=== PATIENT | male | born 1995 | race Caucasian/White ===

== ENCOUNTER 2022-10-04 12:26 | Emergency (ER) | payer OTHER ==
[~2022-10-04] VITALS: Ht 182.9 cm; Wt 101.0 kg
[2022-10-04 15:18] LABS: GC DNA AMPLIFICATION NEGATIVE (NEGATIVE)
[2022-10-04] MEDS ORDERED: ACETAMINOPHEN 500 MG TAB PO ONE (16:30)
[2022-10-04] MEDS ORDERED: KETOROLAC 30 MG/ML 1ML VIAL IM ONE (16:30)
[2022-10-04 17:16] VITALS: BP 142/72
== END 2022-10-04 17:20 | disposition home or self-care (01) ==
LOC: M ED 12:26
DX: G89.18 Other acute postprocedural pain (principal); N50.811 Right testicular pain; Z88.2 Allergy status to sulfonamides

== ENCOUNTER 2022-10-17 11:19 | Emergency (ER) | payer OTHER ==
[~2022-10-17] VITALS: Ht 185.4 cm; Wt 101.7 kg
[2022-10-17] MEDS ORDERED: ACET500T15 PO (11:52)
[2022-10-17] MEDS ORDERED: IBUP-1114 PO (11:52)
[2022-10-17 15:39] LABS: GC DNA AMPLIFICATION NEGATIVE (NEGATIVE)
[2022-10-17] MEDS ORDERED: CIPR-249 PO (15:44)
[2022-10-17] MEDS ORDERED: IBUP-1022 PO (15:44)
[2022-10-17] MEDS ORDERED: CIPROFLOXACIN 500MG TABLET PO ONE (15:45)
[2022-10-17 15:49] VITALS: BP 129/95
== END 2022-10-17 16:13 | disposition home or self-care (01) ==
LOC: M ED 11:19
DX: N50.811 Right testicular pain (principal); N50.3 Cyst of epididymis; Z88.2 Allergy status to sulfonamides

== ENCOUNTER → 2023-07-27 | Outpatient (CLI) | payer OTHER ==
[~2023-07-27] MED LIST: ACET500T15 PO; CIPR-249 PO; GABA-282 PO; IBUP-1022 PO; IBUP-1114 PO; PROZ40CA PO
== END ==
LOC: M RAD 06:33
PROVIDERS: ATTEND Pain Medicine Interventional Pain Medicine
DX: S43.431A Superior glenoid labrum lesion of right shoulder, initial encounter (principal); S43.432A Superior glenoid labrum lesion of left shoulder, initial encounter; Y92.9 Unspecified place or not applicable; Y93.9 Activity, unspecified

== ENCOUNTER → 2023-08-02 | Outpatient (CLI) | payer OTHER ==
[2023-08-02 14:08] LABS: PLATELET COUNT, AUTOMATED 254 10^3/uL (150-450)
[2023-08-02 14:19] LABS: PROTHROMBIN TIME 12.9 SECONDS (12.5-14.5)
[2023-08-02 14:28] LABS: COLLAGEN EPINEPHRINE 177 SECONDS (74-162)
[2023-08-02 15:15] LABS: COLLAGEN ADP 117 SECONDS (56-103)
== END ==
LOC: M LAB 13:20
PROVIDERS: ATTEND Physician Assistant Surgical
DX: Z01.818 Encounter for other preprocedural examination (principal)

== ENCOUNTER → 2023-08-08 | Outpatient (CLI) | payer OTHER ==
[2023-08-08 11:58] LABS: COLLAGEN EPINEPHRINE 220 SECONDS (74-162)
[2023-08-08 12:23] LABS: COLLAGEN ADP 150 SECONDS (56-103)
== END ==
LOC: M LAB 11:17
DX: Z01.812 Encounter for preprocedural laboratory examination (principal)

== ENCOUNTER → 2023-12-05 | Outpatient (CLI) | payer OTHER ==
[~2023-12-05] MED LIST changes: +DULO1CAP6 PO; +MECL-209 PO; +ONDA4TAB6 PO
[2023-12-07 04:07] LABS: F8 ACTIVITY FOR F8 PANEL 62 % (56-140); F8 ACTIVITY vWB FOR F8 PANEL 49 % (50-200); F8 ANTIGEN FOR F8 PANEL 61 % (50-200)
== END ==
LOC: M LAB 07:54
PROVIDERS: ATTEND Internal Medicine Hematology
DX: D69.1 Qualitative platelet defects (principal)

== ENCOUNTER 2023-12-08 13:33 | Emergency (ER) | payer OTHER ==
[~2023-12-08] VITALS: Ht 185.4 cm; Wt 109.6 kg
[~2023-12-08 13:33] MED LIST changes: -DULO1CAP6 PO; -MECL-209 PO; -ONDA4TAB6 PO
[2023-12-08] MEDS ORDERED: DULO1CAP6 PO (13:43)
[2023-12-08 14:38] LABS: BASO % 0.3 % (0.0-1.0); EOS # 0.4 10^3/uL (0.0-0.5); EOS % 4.7 % (0.0-3.0); HEMATOCRIT 47.2 % (42.0-52.0); HEMOGLOBIN 15.9 g/dl (13.5-17.5); LYMPH # 2.5 10^3/uL (1.5-5.0); MEAN CORPUSCULAR HEMOGLOBIN 29.9 pg (27.0-33.0); MEAN CORPUSCULAR HGB CONC 33.7 g/dl (32.0-36.5); MEAN CORPUSCULAR VOLUME 88.9 fl (80.0-96.0); MONO # 0.6 10^3/uL (0.0-0.8); MONO % 7.5 % (2.0-8.0); PLATELET COUNT, AUTOMATED 313 10^3/uL (150-450); RED BLOOD COUNT 5.31 10^6/uL (4.30-6.10); WHITE BLOOD COUNT 7.5 10^3/uL (4.0-10.0)
[2023-12-08 15:03] LABS: C REACTIVE PROTEIN QUANTITATIV < 0.40 MG/DL (<1.0); LIPASE 29 U/L (12-53)
[2023-12-08 15:05] LABS: ALBUMIN 4.1 G/DL (3.2-5.2); ALKALINE PHOSPHATASE 45 U/L (46-116); ALT/SGPT 93 U/L (7.0-40); AST/SGOT 33 U/L (<34); BILIRUBIN,DIRECT 0.3 MG/DL (<0.4); BILIRUBIN,TOTAL 1.1 MG/DL (0.3-1.2); BLOOD UREA NITROGEN 9 MG/DL (9-23); CALCIUM LEVEL 9.7 MG/DL (8.5-10.1); CARBON DIOXIDE LEVEL 30 MMOL/L (20-31); CHLORIDE LEVEL 105 MMOL/L (98-107); CREATININE FOR GFR 1.05 MG/DL (0.70-1.30); GLOMERULAR FILTRATION RATE > 60.0 (>60); GLUCOSE, FASTING 82 MG/DL (60-100); POTASSIUM SERUM 3.6 MMOL/L (3.5-5.1); SODIUM LEVEL 136 MMOL/L (136-145); TOTAL PROTEIN 7.3 G/DL (5.7-8.2)
[2023-12-08 15:14] LABS: ERYTHROCYTE SEDIMENTATION RATE 5 mm/hr (0-15)
[2023-12-08] MEDS: ONDANSETRON 4MG 2ML VIAL IV ONE (17:21)
[2023-12-08] MEDS: NS 1,000 ML IV ONE (17:21)
[2023-12-08] MEDS: KETOROLAC 30 MG/ML 1ML VIAL IV ONE (17:22)
[2023-12-08] MEDS: MECLIZINE 25 MG TABLET PO ONE (17:22)
[2023-12-08 18:02] LABS: CK-MB VALUE MASS < 1.0 NG/ML (<3.6)
[2023-12-08 18:03] LABS: MAGNESIUM LEVEL 1.9 MG/DL (1.8-2.4)
[2023-12-08 18:06] LABS: THYROID STIMULATING HORMONE 1.399 uIU/ML (0.55-4.78)
[2023-12-08 18:07] LABS: FREE T4 1.36 NG/DL (0.89-1.76)
[2023-12-08 18:09] LABS: CPK CREATINE PHOSPHOKINASE 111 U/L (46-171)
[2023-12-08 18:59] VITALS: BP 137/88; TEMP 97.4; O2SAT 99
[2023-12-08] MEDS ORDERED: MECL-209 PO (18:59)
[2023-12-08] MEDS ORDERED: ONDA4TAB6 PO (18:59)
== END 2023-12-08 19:15 | disposition home or self-care (01) ==
LOC: M ED 13:33
DX: G43.909 Migraine, unspecified, not intractable, without status migrainosus (principal); F41.9 Anxiety disorder, unspecified; F32.A Depression, unspecified; F17.290 Nicotine dependence, other tobacco product, uncomplicated; Z88.2 Allergy status to sulfonamides; Z79.899 Other long term (current) drug therapy
CPT/HCPCS: 70450; 80048; 80076; 82550; 82553; 83690; 83735; 84439; 84443; 84484; 85025; 85379; 85652; 86140; 87486; 87581; 87633; 87798; 93005; 96361; 96374; 96375; 99284; J1885; J2405

== ENCOUNTER 2024-05-09 08:58 | Outpatient (CLI) | payer OTHER ==
[~2024-05-09] VITALS: Ht 185.4 cm; Wt 113.6 kg
[~2024-05-09 08:58] MED LIST changes: +DULO1CAP6 PO; +MECL-209 PO; +ONDA-282 PO
[2024-05-09 09:20] VITALS: BP 128/82
[2024-05-09] MEDS ORDERED: NS 250 ML IV ONE (09:30)
[2024-05-09] MEDS: ACETAMINOPHEN TAB 650MG DOSE (2X325MG) PO ONE (11:10)
[2024-05-09] MEDS: diphenhydrAMINE 25MG CAP PO ONE (11:10)
[2024-05-09 11:45] VITALS: BP 139/67; O2SAT 99
[2024-05-09 12:45] VITALS: BP 121/62; O2SAT 100
== END 2024-05-09 13:00 ==
LOC: M INFU 08:58
PROVIDERS: ATTEND Internal Medicine Hematology
DX: D69.1 Qualitative platelet defects (principal); Z88.2 Allergy status to sulfonamides
CPT/HCPCS: 36430; 36592; 86850; 86900; 86901; P9034

== ENCOUNTER 2024-05-10 07:59 | Day surgery (SDC) | payer OTHER ==
[~2024-05-10] VITALS: Ht 185.4 cm; Wt 112.2 kg
[~2024-05-10 07:59] MED LIST changes: +LIDOCAINE 2% 100MG/5ML SDV (FOR ANES.) As Ordered ONE; +ONDANSETRON 4MG 2ML VIAL As Ordered ONE; +ROCURONIUM BROMIDE 50MG/5ML VIAL As Ordered ONE; +propofoL 200 MG/20 ML VIAL As Ordered ONE
[2024-05-10] MEDS ORDERED: LR 1,000 ML IV SCH ×2 (08:20→11:55)
[2024-05-10] MEDS ORDERED: MIDAZOLAM INJ 2MG/2ML VIAL As Ordered ONE (09:05)
[2024-05-10] MEDS ORDERED: ACETAMINOPHEN 1000MG 100ML IV BAG As Ordered ONE (09:05)
[2024-05-10] MEDS ORDERED: HYDROmorphone HCL 2MG/ML 1ML VIAL As Ordered ONE (09:05)
[2024-05-10] MEDS: TRANEXAMIC ACID 100 MG/ML 10ML VIAL IV ONE (09:50)
[2024-05-10] MEDS: ceFAZolin 2 GM/D5W 50 ML IV BAG As Ordered ONE (10:07)
[2024-05-10] MEDS: TRANEXAMIC ACID 100 MG/ML 10ML VIAL As Ordered ONE (10:07)
[2024-05-10] MEDS: EPINEPHrine 1MG/ML INJ 30ML MD-VIAL As Ordered ONE (11:02)
[2024-05-10] MEDS: VANCOMYCIN 1000MG/20ML VIAL As Ordered ONE (11:02)
[2024-05-10] MEDS ORDERED: oxyCODONE 5MG TAB PO PRN (11:55)
[2024-05-10] MEDS ORDERED: MEPERIDINE 25 MG/ML 1ML VIAL IV PRN (11:55)
[2024-05-10] MEDS ORDERED: METOCLOPRAMIDE INJ 10MG/2ML VIAL IV PRN (11:55)
[2024-05-10] MEDS ORDERED: diphenhydrAMINE 50MG/ML VIAL IV PRN (11:55)
[2024-05-10] MEDS ORDERED: HYDROMORPHONE HCL 0.5 MG/ 0.5 ML SYRINGE IV PRN (11:55)
[2024-05-10] MEDS ORDERED: ONDANSETRON 4MG 2ML VIAL IV PRN (11:55)
[2024-05-10] MEDS: fentaNYL 100 MCG/2 ML INJECTION IV PRN ×2 (12:08→12:59)
[2024-05-10] MEDS ORDERED: EPINEPHrine INJ 1 MG/ML 1ML AMP PN ONE (12:35)
[2024-05-10] MEDS ORDERED: dexAMETHasone 10MG/1ML VIAL PRES.FREE PN ONE (12:35)
[2024-05-10] MEDS ORDERED: ROPIvacaine 0.5% 30ML VIAL PN ONE (12:35)
[2024-05-10] MEDS ORDERED: LIDOCAINE 1% SDV 5ML VIAL PN ONE (12:35)
[2024-05-10] MEDS: MIDAZOLAM INJ 2MG/2ML VIAL IV PRN (13:00)
[2024-05-10] MEDS ORDERED: ESMOLOL INJ 100MG/10ML VIAL As Ordered ONE (13:46)
[2024-05-10] MEDS ORDERED: ESMOLOL INJ 100MG/10ML VIAL ONE (14:45)
[2024-05-10 15:05] VITALS: BP 166/98; TEMP 97.9; O2SAT 97
== END 2024-05-10 15:43 | disposition home or self-care (01) ==
LOC: M SDC 07:59
PROVIDERS: ATTEND Orthopaedic Surgery
DX: M75.22 Bicipital tendinitis, left shoulder (principal); M94.212 Chondromalacia, left shoulder; D46.9 Myelodysplastic syndrome, unspecified; D69.6 Thrombocytopenia, unspecified; G47.30 Sleep apnea, unspecified; Z88.2 Allergy status to sulfonamides; Z79.899 Other long term (current) drug therapy; F17.290 Nicotine dependence, other tobacco product, uncomplicated
CPT/HCPCS: 23430; 29820; C1713; J0131; J0171; J0690; J1100; J1170; J1805; J2250; J2405; J3010; J3370

== ENCOUNTER → 2024-07-11 | Outpatient (CLI) | payer OTHER ==
[~2024-07-11] MED LIST changes: +GABA-1172 PO; -GABA-282 PO; -LIDOCAINE 2% 100MG/5ML SDV (FOR ANES.) As Ordered ONE; -ONDANSETRON 4MG 2ML VIAL As Ordered ONE; -ROCURONIUM BROMIDE 50MG/5ML VIAL As Ordered ONE; -propofoL 200 MG/20 ML VIAL As Ordered ONE
[2024-07-11 07:13] LABS: PLATELET COUNT, AUTOMATED 278 10^3/uL (150-450)
[2024-07-11 07:38] LABS: INR 1.03; PARTIAL THROMBOPLASTIN TIME 31.6 SECONDS (24.8-34.2); PROTHROMBIN TIME 13.2 SECONDS (12.5-14.5)
== END ==
LOC: M LAB 06:37
PROVIDERS: ATTEND Physician Assistant Surgical
DX: Z01.812 Encounter for preprocedural laboratory examination (principal)

== ENCOUNTER → 2024-07-21 | Outpatient (CLI) | payer OTHER | LOC: M LAB 12:37 | PROVIDERS: ATTEND Internal Medicine Hematology | DX: D69.1 Qualitative platelet defects (principal) ==

== ENCOUNTER 2024-07-22 12:22 | Outpatient (CLI) | payer OTHER ==
[~2024-07-22] VITALS: Ht 215.9 cm; Wt 109.0 kg
[2024-07-22 12:45] VITALS: BP 137/91; O2SAT 97
[2024-07-22 13:46] VITALS: BP 134/78; TEMP 98.3; O2SAT 98
[2024-07-22 15:10] VITALS: BP 142/82; O2SAT 96
== END 2024-07-22 15:15 ==
LOC: M INFU 12:22
PROVIDERS: ATTEND Internal Medicine Hematology
DX: D69.1 Qualitative platelet defects (principal); Z88.2 Allergy status to sulfonamides
CPT/HCPCS: 36415; 36430; 86850; P9034

== ENCOUNTER → 2025-04-17 | Outpatient (CLI) | payer OTHER | LOC: M RAD 06:57 | PROVIDERS: ATTEND Nurse Practitioner Family | DX: R94.5 Abnormal results of liver function studies (principal); K82.9 Disease of gallbladder, unspecified ==

== ENCOUNTER → 2025-05-23 | Outpatient (CLI) | payer OTHER ==
[~2025-05-23] MED LIST changes: -IBUP-1022 PO; +IBUP600T42 PO; +ISOVUE-300 61% 100 ML VIAL As Ordered ONE; +LIDOCAINE 1% MDV 20 ML VIAL As Ordered ONE; +PROHANCE 279.3MG/ML 5ML VIAL As Ordered ONE
== END ==
LOC: M RAD 09:22
PROVIDERS: ATTEND Orthopaedic Surgery
DX: M25.511 Pain in right shoulder (principal)
CPT/HCPCS: 23350; 73223; 77002; A9576; Q9967